=== PATIENT | female | born 1965 | race Caucasian/White ===

== ENCOUNTER → 2016-07-15 | Outpatient (CLI) | payer BC ==
--- NOTE | 2016-07-19 07:33 | MM ---
Reason for exam: screening (asymptomatic). Last mammogram was performed 3 years and 6 months ago. History: Took hormonal contraceptives for 1 year beginning at age 19. Taking other hormone for 3 years beginning at age 39. Physical Findings: A clinical breast exam by your physician is recommended on an annual basis and results should be correlated with mammographic findings. MG Screening Mammo w CAD Bilateral CC and MLO view(s) were taken. Prior study comparison: January 15, 2013, bilateral digital screening mammo w/CAD. May 14, 2010, bilateral digital screening mammo w/CAD. There are scattered fibroglandular densities. No significant changes when compared with prior studies. ASSESSMENT: Negative, BI-RAD 1 RECOMMENDATION: Routine screening mammogram of both breasts in 1 year.
== END | disposition home or self-care (01) ==
LOC: RADMAMWWP 13:26
PROVIDERS: ATTEND Family Medicine
DX: Z12.31 Encounter for screening mammogram for malignant neoplasm of breast (principal)

== ENCOUNTER → 2019-02-14 | Outpatient (CLI) | payer BC ==
--- NOTE | 2019-02-18 08:53 | MM ---
Reason for exam: screening (asymptomatic). Last mammogram was performed 2 years and 7 months ago. History: Took hormonal contraceptives for 1 year beginning at age 19. Taking other hormone for 3 years beginning at age 39. Physical Findings: A clinical breast exam by your physician is recommended on an annual basis and results should be correlated with mammographic findings. MG 3D Screening Mammo W/Cad Bilateral CC and MLO view(s) were taken. Prior study comparison: July 15, 2016, bilateral MG screening mammo w CAD. January 15, 2013, bilateral digital screening mammo w/CAD. The breast tissue is heterogeneously dense. This may lower the sensitivity of mammography. No significant changes when compared with prior studies. ASSESSMENT: Benign, BI-RAD 2 RECOMMENDATION: Routine screening mammogram of both breasts in 1 year.
== END | disposition home or self-care (01) ==
LOC: RADMAMWWP 13:52
PROVIDERS: ATTEND Family Medicine
DX: Z12.31 Encounter for screening mammogram for malignant neoplasm of breast (principal)
CPT/HCPCS: 77063; 77067

== ENCOUNTER 2019-05-06 15:59 | Observation (INO) | payer BC ==
[2019-05-06] MEDS ORDERED: ASPIRIN 81 MG PO STA (16:32)
[2019-05-06] MEDS ORDERED: NITROGLYCERIN OINT 1 INCH/GM PACKET TOPICAL STA (16:32)
--- NOTE | 2019-05-06 16:35 | ED ---
General Adult HPI - General Chief complaint: Chest Pain Stated complaint: chest heaviness Time Seen by Provider: 05/06/19 16:10 Source: patient, RN notes reviewed Mode of arrival: ambulatory Limitations: no limitations - History of Present Illness Initial comments: Patient is a pleasant 53-year-old female presenting to the emergency Department with complaints of chest discomfort. Onset of symptoms was last night. Discomfort feels like tightness or pressure in the chest without radiation. Patient did have some left neck discomfort couple of days ago. Discomfort was moderate earlier. Patient did have some palpitations earlier. Discomfort is mi ld now rated 3 or 4/10. No associated dyspnea, nausea, or diaphoresis. Discomfort is not positional. No history of similar symptoms previously. No leg pain or leg swelling. - Related Data Allergies Allergy/AdvReac Type Severity Reaction Status Date / Time acetaminophen [From Vicodin] Allergy Hallucinati Verified 05/06/19 16:07 ons hydrocodone [From Vicodin] Allergy Hallucinati Verified 05/06/19 16:07 ons Review of Systems ROS Statement: Those systems with pertinent positive or pertinent negative responses have been documented in the HPI. ROS Other: All systems not noted in ROS Statement are negative. Constitutional: Denies: fever Eyes: Denies: eye pain ENT: Denies: ear pain Respiratory: Denies: cough, dyspnea Cardiovascular: Reports: as per HPI, chest pain Endocrine: Denies: fatigue Gastrointestinal: Denies: abdominal pain Genitourinary: Denies: dysuria Musculoskeletal: Denies: back pain Skin: Denies: rash Neurological: Denies: weakness Past Medical History Past Medical History: GERD/Reflux, Thyroid Disorder Past Surgical History: Hysterectomy, Orthopedic Surgery, Tonsillectomy Additional Past Surgical History / Comment(s): bladder suspension General Exam Limitations: no limitations General appearance: alert, in no apparent distress Head exam: Present: normocephalic Eye exam: Present: normal appearance, PERRL ENT exam: Present: normal oropharynx Neck exam: Present: normal inspection Respiratory exam: Present: normal lung sounds bilaterally. Absent: chest wall tenderness Cardiovascular Exam: Present: regular rate, normal rhythm Expanded Peripheral pulses: 2+: Radial (R), Radial (L), Posterior Tibialis (R), Posterior Tibialis (L), Dorsalis Pedis (R), Dorsalis Pedis (L) GI/Abdominal exam: Present: soft. Absent: tenderness Extremities exam: Present: normal inspection. Absent: pedal edema, calf tenderness Neurological exam: Present: alert Psychiatric exam: Present: normal affect, normal mood Skin exam: Present: normal color Course Vital Signs 05/06/19 05/06/19 16:02 16:17 Temperature 97.9 F Pulse Rate 96 Pulse Rate [ 83 Esthetician ] Respiratory 18 Rate Blood Pressure 157/93 O2 Sat by Pulse 98 Oximetry EKG Findings - EKG Comments: EKG Findings:: Normal sinus rhythm 83. VT 134. QRS 82. QT 380. QTC 446. Normal axis. Normal QRS. No acute ST change. Medical Decision Making - Medical Decision Making Patient reevaluated and does have some improvement with nitroglycerin. Patient and family updated on results and plan. Case discussed in detail with Dr. Mckeon, who will admit covering for Dr. Antunez. - Lab Data Result diagrams: 05/06/19 16:22 05/06/19 16:22 Lab Results 05/06/19 05/06/19 05/06/19 Range/Units 16:22 16:22 16:22 WBC 5.5 (3.8-10.6) k/uL RBC 5.30 (3.80-5.40) m/uL Hgb 15.0 (11.4-16.0) gm/dL Hct 47.3 H (34.0-46.0) % MCV 89.2 (80.0-100.0) fL MCH 28.2 (25.0-35.0) pg MCHC 31.6 (31.0-37.0) g/dL RDW 13.3 (11.5-15.5) % Plt Count 225 (150-450) k/uL Neutrophils % 58 % Lymphocytes % 32 % Monocytes % 6 % Eosinophils % 2 % Basophils % 1 % Neutrophils # 3.1 (1.3-7.7) k/uL Lymphocytes # 1.8 (1.0-4.8) k/uL Monocytes # 0.3 (0-1.0) k/uL Eosinophils # 0.1 (0-0.7) k/uL Basophils # 0.0 (0-0.2) k/uL PT 9.7 (9.0-12.0) sec INR 0.9 (<1.2) APTT 23.4 (22.0-30.0) sec Sodium 138 (137-145) mmol/L Potassium 4.4 (3.5-5.1) mmol/L Chloride 105 (98-107) mmol/L Carbon Dioxide 27 (22-30) mmol/L Anion Gap 6 mmol/L BUN 10 (7-17) mg/dL Creatinine 0.80 (0.52-1.04) mg/dL Est GFR (CKD-EPI)AfAm >90 (>60 ml/min/1.73 sqM) Est GFR (CKD-EPI)NonAf 84 (>60 ml/min/1.73 sqM) Glucose 86 (74-99) mg/dL Calcium 9.4 (8.4-10.2) mg/dL Magnesium 2.1 (1.6-2.3) mg/dL Total Bilirubin 0.5 (0.2-1.3) mg/dL AST 29 (14-36) U/L ALT 22 (4-34) U/L Alkaline Phosphatase 82 (38-126) U/L Troponin I (0.000-0.034) ng/mL Total Protein 7.5 (6.3-8.2) g/dL Albumin 4.4 (3.5-5.0) g/dL 05/06/19 Range/Units 16:22 WBC (3.8-10.6) k/uL RBC (3.80-5.40) m/uL Hgb (11.4-16.0) gm/dL Hct (34.0-46.0) % MCV (80.0-100.0) fL MCH (25.0-35.0) pg MCHC (31.0-37.0) g/dL RDW (11.5-15.5) % Plt Count (150-450) k/uL Neutrophils % % Lymphocytes % % Monocytes % % Eosinophils % % Basophils % % Neutrophils # (1.3-7.7) k/uL Lymphocytes # (1.0-4.8) k/uL Monocytes # (0-1.0) k/uL Eosinophils # (0-0.7) k/uL Basophils # (0-0.2) k/uL PT (9.0-12.0) sec INR (<1.2) APTT (22.0-30.0) sec Sodium (137-145) mmol/L Potassium (3.5-5.1) mmol/L Chloride (98-107) mmol/L Carbon Dioxide (22-30) mmol/L Anion Gap mmol/L BUN (7-17) mg/dL Creatinine (0.52-1.04) mg/dL Est GFR (CKD-EPI)AfAm (>60 ml/min/1.73 sqM) Est GFR (CKD-EPI)NonAf (>60 ml/min/1.73 sqM) Glucose (74-99) mg/dL Calcium (8.4-10.2) mg/dL Magnesium (1.6-2.3) mg/dL Total Bilirubin (0.2-1.3) mg/dL AST (14-36) U/L ALT (4-34) U/L Alkaline Phosphatase (38-126) U/L Troponin I <0.012 (0.000-0.034) ng/mL Total Protein (6.3-8.2) g/dL Albumin (3.5-5.0) g/dL - Radiology Data Radiology results: image reviewed Disposition Clinical Impression: Chest pain Disposition: ADMITTED IP TO THIS [facility] Is patient prescribed a controlled substance at d/c from ED?: No Referrals: Kari Antunez III, MD [Primary Care Provider] - 1-2 days Decision Time: 17:36
[2019-05-06 16:59] LABS: ALT 22 U/L (4-34); AST 29 U/L (14-36); African American GFR (CKD) >90 (>60 ml/min/1.73 sqM); Albumin 4.4 g/dL (3.5-5.0); Alkaline Phosphatase 82 U/L (38-126); Anion Gap 6 mmol/L; Blood Urea Nitrogen 10 mg/dL (7-17); Calcium 9.4 mg/dL (8.4-10.2); Carbon Dioxide 27 mmol/L (22-30); Chloride 105 mmol/L (98-107); Glucose 86 mg/dL (74-99); Magnesium 2.1 mg/dL (1.6-2.3); Non-African American GFR(CKD) 84 (>60 ml/min/1.73 sqM); Potassium 4.4 mmol/L (3.5-5.1); Sodium 138 mmol/L (137-145); Total Bilirubin 0.5 mg/dL (0.2-1.3); Total Protein 7.5 g/dL (6.3-8.2)
[2019-05-06 17:00] LABS: INR 0.9 (<1.2); Partial Thromboplastin Time 23.4 sec (22.0-30.0); Prothrombin Time 9.7 sec (9.0-12.0)
[2019-05-06 17:07] LABS: Basophils % (A) 1 %; Eosinophils # (A) 0.1 k/uL (0-0.7); Eosinophils % (A) 2 %; HCT 47.3 % (34.0-46.0); Lymphocytes # (A) 1.8 k/uL (1.0-4.8); Lymphocytes % (A) 32 %; MCH 28.2 pg (25.0-35.0); MCHC 31.6 g/dL (31.0-37.0); MCV 89.2 fL (80.0-100.0); Mean Platelet Volume 7.8; Monocytes # (A) 0.3 k/uL (0-1.0); Monocytes % (A) 6 %; Neutrophils # (A) 3.1 k/uL (1.3-7.7); Neutrophils % (A) 58 %; Platelet Count 225 k/uL (150-450); RDW 13.3 % (11.5-15.5); WBC 5.5 k/uL (3.8-10.6)
--- NOTE | 2019-05-06 17:35 | XR ---
EXAMINATION TYPE: XR chest 2V DATE OF EXAM: 05/06/2019 COMPARISON: NONE HISTORY: Chest heaviness. Chest pain TECHNIQUE: FINDINGS: Heart and mediastinum are normal. Lungs are clear of infiltrate. There is no pleural effusi on. There are chest leads. Bony thorax is intact. IMPRESSION: No active cardiopulmonary disease. Normal heart.
[2019-05-06] MEDS ORDERED: NITROGLYCERIN SL TABS 0.4 MG TAB SUBLINGUAL PRN (17:37)
[2019-05-06] MEDS ORDERED: TEMAZEPAM 15 MG CAP PO PRN (18:52)
[2019-05-06] MEDS ORDERED: ALPRAZolam 0.25 MG TAB PO PRN (18:52)
--- NOTE | 2019-05-06 21:51 | HP ---
HISTORY AND PHYSICAL DATE OF SERVICE: 05/06/2019 CHIEF COMPLAINT: Chest discomfort. HISTORY OF PRESENT ILLNESS: This 53-year-old woman with a past medical history of multiple medical problems, including history of GERD, hypothyroidism, hysterectomy, history of DJD, tonsillectomy, bladder suspension, being followed by Dr. Antunez in the outpatient setting, was complaining of chest discomfort. Onset was last night. The patient woke up from the sleep and had a pressure type of chest pain in the anterior part of the chest with some radiation to the neck, about 4/10 in intensity. The patient came to [facility] and was admitted for evaluation and treatment. The initial troponins are negative. The initial EKG done in the ER showed no acute changes. A chest x-ray done was also negative. There is no history of any fever, rigor or chills. No history of headache, loss of consciousness, seizures. The patient and her report some stressors in their life currently. PAST MEDICAL HISTORY: History of hypothyroidism, history of GERD, hysterectomy, history of DJD. HOME MEDICATIONS: None. ALLERGIES: VICODIN. FAMILY HISTORY: No history of heart disease or strokes in the family. SOCIAL HISTORY: Patient works in retail. No history of smoking. No history of alcohol intake. REVIEW OF SYSTEMS: ENT: No diminished hearing. No diminished vision. CARDIOVASCULAR SYSTEM: As mentioned earlier. RESPIRATORY SYSTEM: As mentioned earlier. GI: No nausea, vomiting. : No dysuria or retention. NERVOUS SYSTEM: No numbness, weakness. ALLERGY/IMMUNOLOGY: No asthma, hayfever. MUSCULOSKELETAL: As mentioned earlier. HEMATOLOGY/ONCOLOGY: No history of anemia. ENDOCRINE: No history of diabetes, hypothyroidism. CONSTITUTIONAL: As mentioned earlier. DERMATOLOGY: Negative. RHEUMATOLOGY: Negative. PSYCHIATRY: As mentioned earlier. PHYSICAL EXAMINATION: Patient alert and oriented x3. Pulse is 81, blood pressure 123/68, respiration 18, temperature 98.1, pulse ox 96% on room air. HEENT: Conjunctivae normal. Oral mucosa moist. NECK: No jugular venous distention. No carotid bruit. No lymph node enlargement. CARDIOVASCULAR SYSTEM: S1, S2 muffled. No S3. No S4. RESPIRATORY SYSTEM: Breath sounds diminished at the bases. No rhonchi. No crackles. ABDOMEN: Soft, non-tender. No mass palpable. LEGS: No edema. No swelling. NERVOUS SYSTEM: Higher functions as mentioned earlier. Moves all 4 limbs. No focal motor or sensory deficit. LYMPHATICS: No lymph node palpable in neck, axillae or groin. SKIN: No ulcer, rash, bleeding. JOINTS: No active deforming arthropathy. LABS/IMAGING: CBC within normal. CMP normal. Troponins are negative. EKG reviewed; normal. Chest x-ray is normal. ASSESSMENT: 1. Chest pain, possible unstable angina or acute coronary syndrome. 2. Hypothyroidism. 3. History of gastroesophageal reflux disease. 4. History of hysterectomy. 5. History of degenerative joint disease. 6. History of tonsillectomy. 7. History of bladder suspension. 8. Obesity with body mass index of 41.2. RECOMMENDATIONS AND DISCUSSION: In this 53-year-old woman who presented with multiple medical issues, at this time I recommend to continue the current medications, continue with symptomatic treatment. Otherwise at this time I would recommend unstable angina protocol. Rule out myocardial infarction. Cardiology consultation. Possible stress test in the morning. Keep n.p.o. after midnight. Will follow the patient closely. Discussed with the patient and family, who understand and agree. A copy of this dictation is being forwarded to Dr. Antunez, who is the primary physician. MMODL / IJN: [id number] /
[2019-05-07] MEDS: NITROGLYCERIN OINT 1 INCH/GM PACKET TOPICAL SCH ×2 (02:50→05:26)
[2019-05-07 04:10] LABS: Basophils % (A) 0 %; Eosinophils # (A) 0.2 k/uL (0-0.7); Eosinophils % (A) 3 %; HCT 42.4 % (34.0-46.0); HGB 13.3 gm/dL (11.4-16.0); Lymphocytes # (A) 2.2 k/uL (1.0-4.8); Lymphocytes % (A) 39 %; MCH 28.1 pg (25.0-35.0); MCHC 31.3 g/dL (31.0-37.0); MCV 89.7 fL (80.0-100.0); Mean Platelet Volume 7.7; Monocytes # (A) 0.3 k/uL (0-1.0); Monocytes % (A) 5 %; Neutrophils # (A) 2.8 k/uL (1.3-7.7); Neutrophils % (A) 50 %; Platelet Count 196 k/uL (150-450); RBC 4.72 m/uL (3.80-5.40); RDW 13.4 % (11.5-15.5); WBC 5.7 k/uL (3.8-10.6)
[2019-05-07 04:29] LABS: African American GFR (CKD) >90 (>60 ml/min/1.73 sqM); Anion Gap 3 mmol/L; Blood Urea Nitrogen 11 mg/dL (7-17); Calcium 8.6 mg/dL (8.4-10.2); Carbon Dioxide 26 mmol/L (22-30); Chloride 110 mmol/L (98-107); Cholesterol 206 mg/dL (<200); Glucose 100 mg/dL (74-99); HDL Cholesterol 64 mg/dL (40-60); LDL Cholesterol,Calculated 126 mg/dL (0-99); Non-African American GFR(CKD) 83 (>60 ml/min/1.73 sqM); Sodium 139 mmol/L (137-145); Triglycerides 79 mg/dL (<150)
[2019-05-07] MEDS ORDERED: PANTOPRAZOLE 40 MG TABLET PO SCH (07:30)
[2019-05-07 07:47] VITALS: RESP 18
[2019-05-07] MEDS ORDERED: ASPIRIN 325 MG TAB PO SCH (09:00)
--- NOTE | 2019-05-07 10:14 | P.CRDCN ---
History of Present Illness History of present illness: HISTORY OF PRESENTING ILLNESS This is a pleasant 53-year-old female past medical history significant for gastroesophageal reflux disease, hypothyroidism and obesity. 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 We have been asked to see in consultation for chest pain. States she woke up from sleep with heavy sensation in the chest. It was located in the left precordial region and there was no radiation to the arm, back, neck or jaw. She had no associated symptoms of shortness of breath, dizziness or palpitation s. She fell back asleep and woke up in the morning feeling back to her normal health. As the day went on she again felt a heavy sensation in the chest. Upon arrival to the emergency department she was having ongoing chest discomfort until application of Nitropaste and aspirin administration. Her chest pain subsided and she has had no further symptoms. DIAGNOSTICS EKG reveals sinus mechanism with no acute ST or T wave abnormalities noted. Chest xray different acute cardiopulmonary process. Laboratory reviewed, CBC unremarkable, sodium 139, potassium 4.0, magnesium 2.1, creatinine 0.1, cardiac enzymes negative 3, LDL 126, HDL 64 and TSH 3.38. She takes no daily cardiac medications. REVIEW OF SYSTEMS At the time of my exam: CONSTITUTIONAL: Denies fever or chills. CARDIOVASCULAR: Denies chest pain, shortness of breath, orthopnea, PND or palpitations. RESPIRATORY: Denies cough. GASTROINTESTINAL: Denies abdominal pain, diarrhea, constipation, nausea or vomiting. MUSCULOSKELETAL: Denies myalgias. NEUROLOGIC: Denies numbness, tingling or weakness. ENDOCRINE: Denies fatigue, weight change, polydipsia or polyurina. GENITOURINARY: Denies burning, hematuria or urgency with micturation. HEMATOLOGIC: Denies history of anemia or bleeding. PHYSICAL EXAMINATION Blood pressure 142/81 heart rate 96 afebrile and maintaining oxygen saturation on room air. CONSTITUTIONAL: No apparent distress. Obese. HEENT: Head is normocephalic. Pupils are equal, round. Sclerae anicteric. Mucous membranes of the mouth are moist. No JVD. No carotid bruit. CHEST EXAMINATION: Lungs are clear to auscultation. No chest wall tenderness is noted on palpation or with deep breathing. HEART EXAMINATION: Regular rate and rhythm. S1, S2 heard. No murmurs, gallops or rub. ABDOMEN: Soft, nontender. Positive bowel sounds. EXTREMITIES: 2+ peripheral pulses, no lower extremity edema and no calf tenderness. NEUROLOGIC EXAMINATION: Patient is awake, alert and oriented x3. ASSESSMENT Chest pain, atypical for angina. An acute coronary event has been ruled out. Hypothyroidism Gastroesophageal reflux disease Morbid obesity, BMI 41 PLAN An acute coronary event is from ruled out. Obtain 2-D echocardiogram and Doppler study to assess cardiac structure and function. Proceed with stress echocardiogram to assess for stress-induced cardiac ischemia. Lifestyle modifications discussed at length for lowering of LDL cholesterol. Consider PPI daily. Thank you kindly for this consultation. Nurse Practitioner note has been reviewed, I agree with a documented findings and plan of care. Patient was seen and examined. Past Medical History Past Medical History: GERD/Reflux, Thyroid Disorder History of Any Multi-Drug Resistant Organisms: None Reported Past Surgical History: Hysterectomy, Orthopedic Surgery, Tonsillectomy Additional Past Surgical History / Comment(s): bladder suspension Past Anesthesia/Blood Transfusion Reactions: Postoperative Nausea & Vomiting (PONV) Past Psychological History: No Psychological Hx Reported Smoking Status: Never smoker Medications and Allergies Home Medications Medication Instructions Recorded Confirmed Type Calcium Carbonate [Calcium] 600 mg PO HS 05/06/19 05/06/19 History Cetirizine HCl 10 mg PO HS PRN 05/06/19 05/06/19 History Cholecalciferol [Vitamin D3 (25 1,000 unit PO HS 05/06/19 05/06/19 History Mcg = 1000 Iu)] Fluticasone Nasal [place] [Flonase 2 spr EA NOSTRIL DAILY PRN 05/06/19 05/06/19 History Nasal [place]] Levothyroxine Sodium [Synthroid] 112 mcg PO DAILY 05/06/19 05/06/19 History Magnesium Oxide [Mag-Ox] 400 mg PO HS 05/06/19 05/06/19 History Omeprazole 20 mg PO BID 05/06/19 05/06/19 History Zinc 50 mg PO HS 05/06/19 05/06/19 History Allergies Allergy/AdvReac Type Severity Reaction Status Date / Time acetaminophen [From Vicodin] Allergy Hallucinati Verified 05/06/19 16:07 ons hydrocodone [From Vicodin] Allergy Hallucinati Verified 05/06/19 16:07 ons Physical Exam Vitals: Vital Signs Temp Pulse Pulse Pulse Resp BP BP 05/07/19 07:00 98.1 F 96 18 142/81 05/07/19 04:00 98.2 F 73 16 05/07/19 03:30 73 16 05/06/19 22:36 98.3 F 92 16 05/06/19 22:20 92 16 05/06/19 22:00 98.2 F 95 18 118/70 05/06/19 20:00 96 18 128/78 05/06/19 18:36 97.9 F 80 18 142/84 05/06/19 18:01 98.1 F 81 18 123/68 05/06/19 16:17 83 05/06/19 16:02 97.9 F 96 18 157/93 BP Pulse Ox 05/07/19 07:00 96 05/07/19 04:00 122/83 99 05/07/19 03:30 05/06/19 22:36 126/86 97 05/06/19 22:20 05/06/19 22:00 05/06/19 20:00 96 05/06/19 18:36 98 05/06/19 18:01 96 05/06/19 16:17 05/06/19 16:02 98 Intake and Output 05/06/19 05/07/19 05/07/19 22:59 06:59 14:59 Other: # Voids 1 1 Weight 115.666 kg 115.5 kg Results 05/07/19 03:58 05/07/19 03:58 Cardiac Enzymes 05/06/19 05/06/19 05/06/19 Range/Units 16:22 16:22 22:44 AST 29 (14-36) U/L Troponin I <0.012 <0.012 (0.000-0.034) ng/mL 05/07/19 Range/Units 03:58 AST (14-36) U/L Troponin I <0.012 (0.000-0.034) ng/mL Coagulation 05/06/19 Range/Units 16:22 PT 9.7 (9.0-12.0) sec APTT 23.4 (22.0-30.0) sec Lipids 05/07/19 Range/Units 03:58 Triglycerides 79 (<150) mg/dL Cholesterol 206 H (<200) mg/dL HDL Cholesterol 64 H (40-60) mg/dL CBC 03/02/20 03/03/20 Range/Units 16:22 03:58 WBC 5.5 5.7 (3.8-10.6) k/uL RBC 5.30 4.72 (3.80-5.40) m/uL Hgb 15.0 13.3 (11.4-16.0) gm/dL Hct 47.3 H 42.4 (34.0-46.0) % Plt Count 225 196 (150-450) k/uL Comprehensive Metabolic Panel 05/06/19 05/07/19 Range/Units 16:22 03:58 Sodium 138 139 (137-145) mmol/L Potassium 4.4 4.0 (3.5-5.1) mmol/L Chloride 105 110 H (98-107) mmol/L Carbon Dioxide 27 26 (22-30) mmol/L BUN 10 11 (7-17) mg/dL Creatinine 0.80 0.81 (0.52-1.04) mg/dL Glucose 86 100 H (74-99) mg/dL Calcium 9.4 8.6 (8.4-10.2) mg/dL AST 29 (14-36) U/L ALT 22 (4-34) U/L Alkaline Phosphatase 82 (38-126) U/L Total Protein 7.5 (6.3-8.2) g/dL Albumin 4.4 (3.5-5.0) g/dL Current Medications Generic Name Dose Route Start Last Admin Trade Name Freq PRN Reason Stop Dose Admin Alprazolam 0.25 mg 05/06/19 18:52 Xanax PO TID PRN Anxiety Aspirin 325 mg 05/07/19 09:00 Aspirin PO DAILY MARILYN Nitroglycerin 0.4 mg 05/06/19 17:37 Nitrostat SUBLINGUAL Q5M PRN Chest Pain Pantoprazole Sodium 40 mg 05/07/19 07:30 Protonix PO AC-BRKFST MARILYN Sodium Chloride 10 ml 05/06/19 21:00 05/06/19 22:30 Saline Flush IV 10 ml BID MARILYN Administration Temazepam 15 mg 05/06/19 18:52 Restoril PO HS PRN Insomnia Intake and Output 05/06/19 05/07/19 05/07/19 22:59 06:59 14:59 Other: # Voids 1 1 Weight 115.666 kg 115.5 kg 05/07/19 03:58 05/07/19 03:58
[2019-05-07 11:29] VITALS: BP 142/87; PULSE 86; TEMP 97.8
--- NOTE | 2019-05-07 11:51 | US ---
EXAMINATION TYPE: US gallbladder DATE OF EXAM: 05/07/2019 COMPARISON: NONE CLINICAL HISTORY: chest pain. chest pain, no vomiting EXAM MEASUREMENTS: Liver Length: 16.2 cm Gallbladder Wall: 0.2 cm CBD: 0.6 cm Right Kidney: 10.2 x 4.1 x 4.7 cm *extensive bowel gas limits exam and habitus Pancreas: limited views appear wnl Liver: limited, intercostal imaging only Gallbladder: wnl Evidence for sonographic Guillen's sign: no CBD: wnl Right Kidney: wnl IMPRESSION: 1. Limited examination due to body habitus and bowel gas. 2. No suspicious right upper quadrant ultrasound abnormality.
[2019-05-07] MEDS ORDERED: LORATADINE 10 MG TAB PO PRN (13:01)
[2019-05-07] MEDS ORDERED: FLUTICASONE 50MCG/SPRAY NASAL 16GM EA NOSTRIL PRN (13:01)
[2019-05-07] MEDS ORDERED: NON FORMULARY DRUG (Omeprazole [Omeprazole] 20 MG) PO SCH (13:15)
[2019-05-07] MEDS ORDERED: LEVOTHYROXINE 112 MCG TAB PO SCH (13:15)
--- NOTE | 2019-05-07 18:01 | ECHOF ---
Referral Reason:cp, sob with exertion MEASUREMENTS -------- HEIGHT: 167.6 cm WEIGHT: 115.2 kg BP: 137/72 RVIDd: 3.8 cm (< 3.3) IVSd: 1.1 cm (0.6 - 1.1) LVIDd: 3.6 cm (3.9 - 5.3) LVPWd: 1.2 cm (0.6 - 1.1) IVSs: 1.5 cm LVIDs: 2.4 cm LVPWs: 1.7 cm LA Diam: 3.6 cm (2.7 - 3.8) LAESV Index (A-L): 23.69 ml/m Ao Diam: 3.3 cm (2.0 - 3.7) AV Cusp: 2.1 cm (1.5 - 2.6) MV EXCURSION: 12.842 mm (> 18.000) MV EF SLOPE: 94 mm/s (70 - 150) EPSS: 0.3 cm MV E Fernando: 0.79 m/s MV DecT: 194 ms MV A Fernando: 1.05 m/s MV E/A Ratio: 0.76 AR PHT: 528 ms RAP: 5.00 mmHg RVSP: 28.51 mmHg TAPSE: 19.13 mm FINDINGS -------- Resting tachycardia (HR>100bpm). This was a technically good study. The left ventricular size is normal. There is borderline concentric left ventricular hypertrophy. Overall left ventricular systolic function is normal with, an EF between 60 - 65 %. The right ventricle is mild to moderately enlarged. Normal LA size by volume 22+/-6 ml/m2. The right atrium is normal in size. Interatrial and interventricular septum intact. The aortic valve is trileaflet and appears structurally normal. The mitral valve is normal. Mild tricuspid regurgitation present. Right ventricular systolic pressure is normal at < 35 mmHg. The aortic root size is normal. Normal inferior vena cava with normal inspiratory collapse consistent with estimated right atrial pre ssure of 5 mmHg. There is no pericardial effusion. CONCLUSIONS -------- 1. Resting tachycardia (HR>100bpm). 2. This was a technically good study. 3. The left ventricular size is normal. 4. There is borderline concentric left ventricular hypertrophy. 5. Overall left ventricular systolic function is normal with, an EF between 60 - 65 %. 6. The right ventricle is mild to moderately enlarged. 7. Normal LA size by volume 22+/-6 ml/m2. 8. The right atrium is normal in size. 9. Interatrial and interventricular septum intact. 10. The aortic valve is trileaflet and appears structurally normal. 11. The mitral valve is normal. 12. Mild tricuspid regurgitation present. 13. Right ventricular systolic pressure is normal at < 35 mmHg. 14. The aortic root size is normal. 15. Normal inferior vena cava with normal inspiratory collapse consistent with estimated right atrial pressure of 5 mmHg. 16. There is no pericardial effusion. SOFT IRON INSPECTOR: Iliana Nguyen RDCS
[2019-05-07] MEDS ORDERED: CHOLECALCIFEROL 1,000 UNIT TAB PO SCH (21:00)
[2019-05-07] MEDS ORDERED: ZINC SULFATE 220 MG CAP PO SCH (21:00)
[2019-05-07] MEDS ORDERED: MAGNESIUM OXIDE 400 MG TAB PO SCH (21:00)
[2019-05-07] MEDS ORDERED: CALCIUM CARBONATE 500 MG CHEWABLE PO SCH (21:00)
--- NOTE | 2019-05-08 06:51 | DS ---
DISCHARGE SUMMARY FINAL DIAGNOSES: 1. Chest pain, possible musculoskeletal, negative stress test. 2. Hypothyroidism. 3. Hyperlipidemia. 4. History of gastroesophageal reflux disease. 5. History of hysterectomy. 6. History of degenerative joint disease. 7. History of tonsillectomy. 8. History of bladder suspension. 9. Obesity with body mass index of 41.1. DISCHARGE DISPOSITION: The patient will be discharged in stable condition with guarded prognosis. HISTORY OF PRESENT ILLNESS: This is a 53-year-old woman with a past medical history of multiple medical problems admitted with chest pain. Myocardial infarction ruled out. Cardiology performed stress test which was negative. Ultrasound also unremarkable. The patient was found to have high cholesterol at 206 and LDL 126. Recommend dietary management and follow up in the outpatient setting for further evaluation maybe in the next few months. On exam, vitals are stable. CARDIOVASCULAR: S1, S2 muffled. ABDOMEN: Soft. NERVOUS SYSTEM: No focal deficits. Patient will be discharge in stable and guarded prognosis after clearance from Cardiology. DISCHARGE ADVICE AND MEDICATIONS: 1. Diet is cardiac. 2. Activity limited until followup. 3. Follow up with Dr. Antunez in 2 to 3 days. 4. Follow up with Cardiology as recommended. The medications are: 1. Calcium carbonate 600 mg at bedtime. 2. Cetirizine 10 mg at bedtime p.r.n. 3. Flonase 2 sprays daily. 4. Magnesium oxide 400 mg at bedtime. 5. Omeprazole 20 mg p.o. b.i.d. 6. Synthroid 112 mcg p.o. daily. 7. Vitamin D3, 1000 mg at bedtime. 8. Zinc 50 mg at bedtime. 9. Ecotrin 325 mg p.o. daily. MMODL / IJN: [id number] /
[2019-05-08] MEDS ORDERED: ASPIRIN 81 MG PO SCH (09:00)
--- NOTE | 2019-05-08 12:12 | ECHOS ---
STRESS ECHOCARDIOGRAM INDICATIONS: Chest pain. BASELINE HEART RATE: 82 BASELINE BLOOD PRESSURE: 135/72 MAXIMUM HEART RATE: 181 MAXIMUM BLOOD PRESSURE: 170/79 85% MPHR: 141 100% MPHR: 166 METS: 6.6 MAXIMUM STAGE REACHED: 2 TOTAL EXERCISE TIME: 5:03 CLINICAL INFORMATION: Patient was exercised for a total period of 5 minutes. Peak heart rate of 181 was achieved. Maximum blood pressure of 170/79 mmHg was noted. Resting EKG shows normal sinus rhythm with normal [place] interval and QRS duration and nonspecific ST changes noted during exercise. Equivocal upsloping ST-segment changes were noted. Occasional PVCs were noted. Patient did not complain of any chest pain during the test. Baseline echocardiographic images reveals normal left ventricular chamber size with normal left ventricular systolic function in the immediate postexercise period. Normal increase in the wall thickness and contractility was noted. FINAL IMPRESSION: 1. This stress echocardiographic study is negative for stress-induced ischemia. 2. EKG portion of the stress test is not suggestive of ischemia. MMODL / IJN: [id number] /
== END 2019-05-07 15:16 | disposition home or self-care (01) ==
LOC: EC 15:59 → 1SOBS 17:37
PROVIDERS: ADMIT Hospitalist; ATTEND Hospitalist
DX: R07.89 Other chest pain (principal); E03.9 Hypothyroidism, unspecified; E78.5 Hyperlipidemia, unspecified; E78.00 Pure hypercholesterolemia, unspecified; E66.01 Morbid (severe) obesity due to excess calories; K21.9 Gastro-esophageal reflux disease without esophagitis; M19.90 Unspecified osteoarthritis, unspecified site; Z90.710 Acquired absence of both cervix and uterus; Z90.89 Acquired absence of other organs; Z98.890 Other specified postprocedural states; Z68.41 Body mass index [BMI] 40.0-44.9, adult; Z71.3 Dietary counseling and surveillance; Z79.890 Hormone replacement therapy; Z79.899 Other long term (current) drug therapy; Z88.5 Allergy status to narcotic agent
CPT/HCPCS: 93005 ×2; 99285; 36415; 93306; 93351; 80061; 80053; 80048; 84443; 83735; 84484 ×2; 85025 ×2; 85610; 85730; 71046; 76705; G0378 ×2

== ENCOUNTER 2019-08-05 09:41 | Emergency (ER) | payer BC ==
[2019-08-05 10:10] VITALS: BP 153/92; PULSE 87; RESP 18; TEMP 98.2
--- NOTE | 2019-08-05 10:32 | ED ---
Wound/Laceration HPI - General Chief Complaint: Wound/Laceration Stated Complaint: rt leg varicose veins Time Seen by Provider: 08/05/19 10:13 Source: patient Mode of arrival: ambulatory Limitations: no limitations - History of Present Illness Initial Comments: Patient is a 53-year-old female with history of varicose veins presenting to emergency department with a chief complaint of a bleeding varicose vein. Patient reports she was shaving earlier this morning when she supposedly lacerated a varicose vein on the anterior aspect of her right lower extremity. Patient reports she noticed large amounts of blood and soaked through some gauze. States she contacted her primary care provider who advised to come to the ED for further evaluation. Patient denies any nausea or vomiting, chest pain shortness of breath light headedness or dizziness. - Related Data Home Medications Medication Instructions Recorded Confirmed Calcium Carbonate [Calcium] 600 mg PO HS 05/06/19 05/06/19 Cetirizine HCl 10 mg PO HS PRN 05/06/19 05/06/19 Cholecalciferol [Vitamin D3 (25 1,000 unit PO HS 05/06/19 05/06/19 Mcg = 1000 Iu)] Fluticasone Nasal [place] [Flonase 2 spr EA NOSTRIL DAILY PRN 05/06/19 05/06/19 Nasal [place]] Levothyroxine Sodium [Synthroid] 112 mcg PO DAILY 05/06/19 05/06/19 Magnesium Oxide [Mag-Ox] 400 mg PO HS 05/06/19 05/06/19 Omeprazole 20 mg PO BID 05/06/19 05/06/19 Zinc 50 mg PO HS 05/06/19 05/06/19 Allergies Allergy/AdvReac Type Severity Reaction Status Date / Time acetaminophen [From Vicodin] Allergy Hallucinati Verified 08/05/19 10:09 ons hydrocodone [From Vicodin] Allergy Hallucinati Verified 08/05/19 10:09 ons Review of Systems ROS Statement: Those systems with pertinent positive or pertinent negative responses have been documented in the HPI. ROS Other: All systems not noted in ROS Statement are negative. Past Medical History Past Medical History: GERD/Reflux, Thyroid Disorder History of Any Multi-Drug Resistant Organisms: None Reported Past Surgical History: Hysterectomy, Orthopedic Surgery, Tonsillectomy Additional Past Surgical History / Comment(s): bladder suspension thyroidectomy Past Anesthesia/Blood Transfusion Reactions: Postoperative Nausea & Vomiting (PONV) Past Psychological History: No Psychological Hx Reported Smoking Status: Never smoker Past Alcohol Use History: Occasional Past Drug Use History: None Reported General Exam Limitations: no limitations General appearance: alert, in no apparent distress Head exam: Present: atraumatic, normocephalic, normal inspection Eye exam: Present: normal appearance, PERRL, EOMI Pupils: Present: normal accommodation ENT exam: Present: normal exam, normal oropharynx, mucous membranes moist Neck exam: Present: normal inspection, full ROM Respiratory exam: Present: normal lung sounds bilaterally. Absent: respiratory distress, wheezes, rales Cardiovascular Exam: Present: regular rate, normal rhythm, normal heart sounds Extremities exam: Present: full ROM, normal capillary refill, other (+2 dorsalis pedis up to tibialis bilaterally.). Absent: normal inspection (Varicose veins n oted bilateral lower extremities. Bleeding varicose vein noted in the right lower extremity. No active bleeding at this time.), calf tenderness Back exam: Present: normal inspection, full ROM Neurological exam: Present: alert, oriented X3 Psychiatric exam: Present: normal affect, normal mood Skin exam: Present: warm, dry, intact, normal color Course Vital Signs 08/05/19 10:05 Temperature 98.2 F Pulse Rate 87 Respiratory 18 Rate Blood Pressure 153/92 O2 Sat by Pulse 99 Oximetry Medical Decision Making - Medical Decision Making Patient is a 53-year-old female presenting to emergency Department with chief complaint of a bleeding varicose vein. On exam, the patient did have a small laceration to the varicose vein on the right lower extremity but there is no active bleeding at this time. She heard a wrapped the area tightly before coming to the ED. New dressing was applied and wrapped tightly with [place]. Patient advised to keep the leg elevated when at home and wear compression stockings. Return parameters were thoroughly discussed with patient is understanding and agreeable. Case discussed with physician. Disposition Clinical Impression: Bleeding from varicose veins of right lower extremity Disposition: HOME SELF-CARE Condition: Stable Instructions (If sedation given, give patient instructions): Vein Stripping (DC) Additional Instructions: Apply wrapping material very tightly in case this occurs again. Return to emergency department if symptoms worsen. Is patient prescribed a controlled substance at d/c from ED?: No Referrals: Kari Antunez III, MD [Primary Care Provider] - 1-2 days Time of Disposition: 10:32
== END 2019-08-05 11:14 | disposition home or self-care (01) ==
LOC: EC 09:41
DX: I83.891 Varicose veins of right lower extremity with other complications (principal); E07.9 Disorder of thyroid, unspecified; K21.9 Gastro-esophageal reflux disease without esophagitis; Z79.890 Hormone replacement therapy; Z79.899 Other long term (current) drug therapy; Z88.5 Allergy status to narcotic agent; Z88.6 Allergy status to analgesic agent
CPT/HCPCS: 99283

== ENCOUNTER → 2020-01-29 | Outpatient (CLI) | payer BC | END | disposition home or self-care (01) | LOC: LABWHC1 16:27 | PROVIDERS: ATTEND Family Medicine | DX: Z20.828 Contact with and (suspected) exposure to other viral communicable diseases (principal) | CPT/HCPCS: U0003; C9803 ==

== ENCOUNTER → 2020-02-07 | Outpatient (CLI) | payer BC | END | disposition home or self-care (01) | LOC: LABWHC1 17:05 | PROVIDERS: ATTEND Nurse Practitioner Family | DX: R09.81 Nasal congestion (principal) | CPT/HCPCS: U0003; C9803 ==

== ENCOUNTER → 2020-04-06 | Outpatient (CLI) | payer BC ==
--- NOTE | 2020-04-07 13:46 | MM ---
Reason for exam: screening (asymptomatic). Last mammogram was performed 1 year and 2 months ago. History: Patient is postmenopausal. Took hormonal contraceptives for 1 year beginning at age 19. Taking other hormone for 3 years beginning at age 39. Physical Findings: A clinical breast exam by your physician is recommended on an annual basis and results should be correlated with mammographic findings. MG 3D Screening Mammo W/Cad Bilateral CC and MLO view(s) were taken. Prior study comparison: February 14, 2019, bilateral MG 3d screening mammo w/cad. July 15, 2016, bilateral MG screening mammo w CAD. There are scattered fibroglandular densities. No significant changes when compared with prior studies. ASSESSMENT: Benign, BI-RAD 2 RECOMMENDATION: Routine screening mammogram of both breasts in 1 year.
== END | disposition home or self-care (01) ==
LOC: RADMAMWWP 16:41
PROVIDERS: ATTEND Family Medicine
DX: Z12.31 Encounter for screening mammogram for malignant neoplasm of breast (principal)
CPT/HCPCS: 77063; 77067

== ENCOUNTER → 2023-06-30 | Outpatient (CLI) | payer BC ==
--- NOTE | 2023-06-30 11:29 | MM ---
Reason for Exam: Clinical finding. Last mammogram was performed 3 year(s) and 2 month(s) ago. Patient History: Menarche at age 11. First Full-Term at age 24. Hysterectomy at age 48. Postmenopausal. Hormonal Contraceptives, starting at age 19 for 1 year. Risk Values: Isabelle 5 year model risk: 1.5%. NCI Lifetime model risk: 8.5%. Prior Study Comparison: 01/15/2013 Bilateral Screening Mammogram, [facility]. 07/15/2016 Bilateral Screening Mammogram, [facility]. 02/14/2019 Bilateral Screening Mammogram, [facility]. 04/06/2020 Bilateral Screening Mammogram, [facility]. Tissue Density: The breasts are heterogeneously dense, which may obscure small masses. Findings: Analyzed By CAD. No evidence for mass or distortion. No suspicious calcifications. Relate clinically with regards to focal right breast pain. Overall Assessment: Negative, BI-RAD 1 Management: Screening Mammogram of both breasts in 1 year. . Results were given to the patient verbally at the time of exam. Patient should continue monthly self-breast exams. A clinical breast exam by your physician is recommended on an annual basis. This exam should not preclude additional follow-up of suspicious palpable abnormalities. Note on Isabelle scores and lifetime risk: 1. A Isabelle score greater than 3% is considered moderate risk. If this is the case, consider specialist referral to assess eligibility for a risk reducing agent. 2. If overall lifetime risk for the development of breast cancer is 20% or higher, the patient may qualify for future screening with alternating mammogram and breast MRI. Electronically signed and approved by: Rogelio Pat M.D. Radiologis
== END | disposition home or self-care (01) ==
LOC: RADMAMWWP 11:05
PROVIDERS: ATTEND Family Medicine
DX: N64.4 Mastodynia (principal); Z78.0 Asymptomatic menopausal state
CPT/HCPCS: 77062; 77066

== ENCOUNTER 2024-07-14 21:41 | Emergency (ER) | payer BC ==
[2024-07-14 21:47] VITALS: TEMP 97.6
[2024-07-14 21:59] LABS: Glucose,Whole Blood 140 mg/dL (70-110)
[2024-07-14 22:05] LABS: Basophils # (A) 0.06 10*3/uL (0.00-0.10); Basophils % (A) 0.7 %; Eosinophils # (A) 0.13 10*3/uL (0.04-0.35); Eosinophils % (A) 1.6 %; HCT 43.6 % (37.2-46.3); HGB 13.9 g/dL (12.0-15.0); Lymphocytes # (A) 2.93 10*3/uL (0.90-5.00); MCH 28.8 pg (27.0-32.0); MCHC 31.9 g/dL (32.0-37.0); MCV 90.5 fL (80.0-97.0); Mean Platelet Volume 10.9 fL (9.5-12.2); Monocytes # (A) 0.81 10*3/uL (0.20-1.00); Monocytes % (A) 9.7 %; Neutrophils # (A) 4.41 10*3/uL (1.80-7.70); Neutrophils % (A) 52.8 %; Platelet Count 201 10*3/uL (140-440); RBC 4.82 10*6/uL (4.10-5.20); RDW 13.3 % (11.5-14.5); WBC 8.36 10*3/uL (4.50-10.00)
--- NOTE | 2024-07-14 22:07 | ED ---
Arrhythmia/Palpitations HPI - General Chief Complaint: Arrhythmia/Palpitations Stated Complaint: Tachycardia, Chest Tightness Time Seen by Provider: 07/14/24 21:53 Source: patient Mode of arrival: ambulatory Limitations: no limitations - History of Present Illness MD Complaint: rapid heart beat Onset/Timin -: hour(s) Context: occurred during rest Associated Symptoms: shortness of breath - Related Data Home Medications Medication Instructions Recorded Confirmed Levothyroxine Sodium [Synthroid] 112 mcg PO HS 05/06/19 05/07/22 Omeprazole 20 mg PO DAILY 05/06/19 05/07/22 Amoxic-Pot Clav 875-125Mg 1 tab PO Q12H 05/07/22 05/07/22 [Augmentin 875-125] Promethazine/Dextromethorphan 5 ml PO Q4H PRN 05/07/22 05/07/22 [Phenergan Dm 6.25-15 mg/5Ml] predniSONE 50 mg PO DAILY 05/07/22 05/07/22 Previous Rx's Medication Instructions Recorded Albuterol Nebulized [Ventolin 2.5 mg INHALATION Q4H PRN #75 ml 05/07/22 Nebulized] Allergies Allergy/AdvReac Type Severity Reaction Status Date / Time pantoprazole [From Protonix] Allergy Rash/Hives Verified 07/14/24 21:47 & Abdominal Pain hydrocodone [From Vicodin] AdvReac Hallucinati Verified 07/14/24 21:47 ons Review of Systems ROS Statement: Those systems with pertinent positive or pertinent negative responses have been documented in the HPI. ROS Other: All systems not noted in ROS Statement are negative. Past Medical History Past Medical History: GERD/Reflux, Thyroid Disorder Additional Past Medical History / Comment(s): bronchitis History of Any Multi-Drug Resistant Organisms: None Reported Past Surgical History: Hysterectomy, Orthopedic Surgery, Tonsillectomy Additional Past Surgical History / Comment(s): bladder suspension thyroidectomy Past Anesthesia/Blood Transfusion Reactions: Postoperative Nausea & Vomiting (PONV) Past Psychological History: No Psychological Hx Reported Smoking Status: Never smoker Past Alcohol Use History: Occasional Past Drug Use History: None Reported General Exam Limitations: no limitations Course Vital Signs 07/14/24 07/14/24 21:43 23:28 Temperature 97.6 F Pulse Rate 217 H 115 H Respiratory 20 18 Rate Blood Pressure 116/78 O2 Sat by Pulse 98 97 Oximetry EKG Findings - EKG Comments: EKG Findings:: Supraventricular tachycardia - EKG Results: EKG: interpreted by ERMD, normal axis, normal QRS EKG shows: tachycardia (Rate to 20 bpm) - Blocks, [place], Hypertrophy, ST Abn: Repolarization changes or abnormalities: nonspecific abnormality, ST segment, and/or T wave Medical Decision Making - Medical Decision Making The patient had chest x-ray that I interpreted as negative for acute infiltrate, pneumothorax, congestive heart failure - Lab Data Result diagrams: 07/14/24 21:56 07/14/24 21:56 Lab Results 07/14/24 07/14/24 07/14/24 Range/Units 21:56 21:56 21:56 WBC 8.36 (4.50-10.00) 10*3/uL RBC 4.82 (4.10-5.20) 10*6/uL Hgb 13.9 (12.0-15.0) g/dL Hct 43.6 (37.2-46.3) % MCV 90.5 (80.0-97.0) fL MCH 28.8 (27.0-32.0) pg MCHC 31.9 L (32.0-37.0) g/dL Plt Count 201 (140-440) 10*3/uL MPV 10.9 (9.5-12.2) fL Immature Gran % (Auto) 0.2 % Neutrophils % 52.8 % Lymphocytes % 35.0 % Monocytes % 9.7 % Eosinophils % 1.6 % Basophils % 0.7 % Immature Gran # 0.02 (0.00-0.04) 10*3/uL Neutrophils # 4.41 (1.80-7.70) 10*3/uL Lymphocytes # 2.93 (0.90-5.00) 10*3/uL Monocytes # 0.81 (0.20-1.00) 10*3/uL Eosinophils # 0.13 (0.04-0.35) 10*3/uL Basophils # 0.06 (0.00-0.10) 10*3/uL PT 10.6 (10.0-12.5) sec INR 0.9 (<1.2) APTT 23.9 (22.0-30.0) sec Sodium 140 (137-145) mmol/L Potassium 3.8 (3.5-5.1) mmol/L Chloride 105 (98-107) mmol/L Carbon Dioxide 24 (22-30) mmol/L Anion Gap 11 mmol/L BUN 14 (7-17) mg/dL Creatinine 0.88 (0.52-1.04) mg/dL Est GFR (CKD-EPI)AfAm 84 (>60 ml/min/1.73 sqM) Est GFR (CKD-EPI)NonAf 73 (>60 ml/min/1.73 sqM) Glucose 152 H (74-99) mg/dL POC Glucose (mg/dL) (70-110) mg/dL POC Glu Senior Advisory ID Calcium 9.6 (8.4-10.2) mg/dL Magnesium 2.1 (1.6-2.3) mg/dL Total Bilirubin 0.6 (0.2-1.3) mg/dL AST 32 (14-36) U/L ALT 28 (4-34) U/L Alkaline Phosphatase 66 (38-126) U/L Troponin I (0.000-0.034) ng/mL Total Protein 7.4 (6.3-8.2) g/dL Albumin 4.2 (3.5-5.0) g/dL TSH 1.230 (0.465-4.680) mIU/L 07/14/24 07/14/24 Range/Units 21:56 21:57 WBC (4.50-10.00) 10*3/uL RBC (4.10-5.20) 10*6/uL Hgb (12.0-15.0) g/dL Hct (37.2-46.3) % MCV (80.0-97.0) fL MCH (27.0-32.0) pg MCHC (32.0-37.0) g/dL Plt Count (140-440) 10*3/uL MPV (9.5-12.2) fL Immature Gran % (Auto) % Neutrophils % % Lymphocytes % % Monocytes % % Eosinophils % % Basophils % % Immature Gran # (0.00-0.04) 10*3/uL Neutrophils # (1.80-7.70) 10*3/uL Lymphocytes # (0.90-5.00) 10*3/uL Monocytes # (0.20-1.00) 10*3/uL Eosinophils # (0.04-0.35) 10*3/uL Basophils # (0.00-0.10) 10*3/uL PT (10.0-12.5) sec INR (<1.2) APTT (22.0-30.0) sec Sodium (137-145) mmol/L Potassium (3.5-5.1) mmol/L Chloride (98-107) mmol/L Carbon Dioxide (22-30) mmol/L Anion Gap mmol/L BUN (7-17) mg/dL Creatinine (0.52-1.04) mg/dL Est GFR (CKD-EPI)AfAm (>60 ml/min/1.73 sqM) Est GFR (CKD-EPI)NonAf (>60 ml/min/1.73 sqM) Glucose (74-99) mg/dL POC Glucose (mg/dL) 140 H (70-110) mg/dL POC Glu Senior Advisory ID Deni Arguelles Calcium (8.4-10.2) mg/dL Magnesium (1.6-2.3) mg/dL Total Bilirubin (0.2-1.3) mg/dL AST (14-36) U/L ALT (4-34) U/L Alkaline Phosphatase (38-126) U/L Troponin I <0.012 (0.000-0.034) ng/mL Total Protein (6.3-8.2) g/dL Albumin (3.5-5.0) g/dL TSH (0.465-4.680) mIU/L Disposition Clinical Impression: Supraventricular tachycardia Disposition: HOME SELF-CARE Condition: Good Instructions (If sedation given, give patient instructions): Supraventricular Tachycardia (ED) Is patient prescribed a controlled substance at d/c from ED?: No Referrals: Blane Parks DO [Primary Care Provider] - 1-2 days Nahid Ruff MD [STAFF PHYSICIAN] - 1-2 days
[2024-07-14] MEDS: ADENOSINE 3 MG/ML 2 ML VIAL IVP STA (22:11)
[2024-07-14] MEDS: SODIUM CHLORIDE 0.9% 500 ML 500 ML IV STA (22:12)
[2024-07-14 22:14] LABS: INR 0.9 (<1.2); Partial Thromboplastin Time 23.9 sec (22.0-30.0); Prothrombin Time 10.6 sec (10.0-12.5)
[2024-07-14 22:19] LABS: ALT 28 U/L (4-34); AST 32 U/L (14-36); African American GFR (CKD) 84 (>60 ml/min/1.73 sqM); Albumin 4.2 g/dL (3.5-5.0); Alkaline Phosphatase 66 U/L (38-126); Anion Gap 11 mmol/L; Blood Urea Nitrogen 14 mg/dL (7-17); Calcium 9.6 mg/dL (8.4-10.2); Carbon Dioxide 24 mmol/L (22-30); Chloride 105 mmol/L (98-107); Glucose 152 mg/dL (74-99); Magnesium 2.1 mg/dL (1.6-2.3); Non-African American GFR(CKD) 73 (>60 ml/min/1.73 sqM); Potassium 3.8 mmol/L (3.5-5.1); Sodium 140 mmol/L (137-145); Total Bilirubin 0.6 mg/dL (0.2-1.3); Total Protein 7.4 g/dL (6.3-8.2)
[2024-07-14 23:29] VITALS: RESP 18
[2024-07-14] MEDS: LORazepam 1 MG/0.5 ML VIAL IV STA (23:29)
--- NOTE | 2024-07-15 00:18 | XR ---
EXAM: XR Chest, 1 View CLINICAL HISTORY: Dysrhythmia TECHNIQUE: Frontal view of the chest. COMPARISON: Portable chest single view 05/07/2022; CTA chest 05/07/2022 FINDINGS: Lungs: No definite focal airspace consolidation. No radiographic evidence for florid CHF. Pleural space: Unremarkable. No pneumothorax. No large pleural effusion. Heart: The cardiac silhouette is within normal limits, accounting for technique and overlying prominent soft tissues. Mediastinum: Evaluation of mediastinal contours are slightly limited by obliquity. This stable appearance. No significant tracheal deviation. Bones/joints: Unremarkable. No acute fracture. IMPRESSION: No focal consolidation or acute cardiopulmonary process identified.
[2024-07-15 01:17] VITALS: BP 114/70; PULSE 112
== END 2024-07-15 01:23 | disposition home or self-care (01) ==
LOC: EC 21:41
DX: I47.10 Supraventricular tachycardia, unspecified (principal); Z88.5 Allergy status to narcotic agent; Z88.8 Allergy status to other drugs, medicaments and biological substances
CPT/HCPCS: 36415; 93005; 80053; 83735; 84443; 84484; 85025; 85610; 85730; 71045; 99285; 96374; 96375; J2060; J0153